=== PATIENT | female | born 1950 | race Caucasian/White ===

== ENCOUNTER 2017-08-11 16:41 | Emergency (ER) | payer OTHER ==
[2017-08-11] MEDS: ALBUTEROL 0.5% (NEB) 2.5 MG/0.5 ML AMP INH (20:27)
== END 2017-08-11 21:39 | disposition home or self-care (01) ==
LOC: FTE 16:41
DX: R05 Cough (principal); I10 Essential (primary) hypertension
CPT/HCPCS: 71045; 94644; 99283-25